=== PATIENT | male | born 1970 | race Caucasian/White ===

== ENCOUNTER → 2023-01-17 | Outpatient (CLI) | payer BC ==
[2023-01-17 22:41] LABS: Basophils # (A) 0.07 X 10*3/uL (0.00-0.10); Basophils % (A) 0.9 %; Eosinophils % (A) 6.7 %; HCT 48.6 % (39.6-50.0); HGB 15.6 g/dL (13.0-17.0); Immature Grans, Automated 0.3 %; Lymphocytes # (A) 2.79 X 10*3/uL (0.90-5.00); Lymphocytes % (A) 37.4 %; MCH 29.2 pg (27.0-32.0); MCHC 32.1 g/dL (32.0-37.0); Mean Platelet Volume 10.9 fL (9.5-12.2); Monocytes # (A) 0.61 X 10*3/uL (0.20-1.00); Monocytes % (A) 8.2 %; NRBC Per 100 WBC 0 /100 WBCS (0.0-0.0); Neutrophils # (A) 3.47 X 10*3/uL (1.80-7.70); Neutrophils % (A) 46.5 %; Platelet Count 255 X 10*3/uL (140-440); RBC 5.34 X 10*6/uL (4.40-5.60); RDW 13.2 % (11.5-14.5); WBC 7.46 X 10*3/uL (4.50-10.00)
[2023-01-17 23:19] LABS: ALT 52 U/L (10-49); AST 29 U/L (14-35); African American GFR (CKD) 111.9 (60.0-200.0); Albumin 4.4 g/dL (3.8-4.9); Albumin/Globulin Ratio 1.73 (1.60-3.17); Alkaline Phosphatase 134 U/L (41-126); BUN/Creat Ratio 17.48 Ratio (12.00-20.00); Blood Urea Nitrogen 15.7 mg/dL (9.0-27.0); Calcium 9.7 mg/dL (8.7-10.3); Carbon Dioxide 25.2 mmol/L (20.0-27.5); Chloride 105 mmol/L (96-109); Globulin 2.5 g/dL (1.6-3.3); Glucose 100 mg/dL (70-110); LDL Cholesterol,Calculated 92.9 mg/dL (0.0-131.0); Non-African American GFR(CKD) 96.6 (60.0-200.0); Potassium 4.3 mmol/L (3.5-5.5); Sodium 143 mmol/L (135-145); Total Protein 6.9 g/dL (6.2-8.2)
== END | disposition home or self-care (01) ==
LOC: LABWHC1 10:54
PROVIDERS: ATTEND Family Medicine
DX: Z00.00 Encounter for general adult medical examination without abnormal findings (principal); Z12.5 Encounter for screening for malignant neoplasm of prostate
CPT/HCPCS: 36415; 80053; 80061; 82306; 84153; 84439; 84443; 84481; 85025

== ENCOUNTER → 2025-01-13 | Outpatient (CLI) | payer BC ==
[2025-01-13 16:31] LABS: HCT 50.1 % (39.6-50.0); HGB 16.1 g/dL (13.0-17.0); MCH 29.3 pg (27.0-32.0); MCHC 32.1 g/dL (32.0-37.0); MCV 91.1 FL (80.0-97.0); Mean Platelet Volume 11.6 FL (9.5-12.2); NRBC Per 100 WBC 0 X 10*3/uL (0.00-0.01); Platelet Count 271 X 10*3/uL (140-440); RDW 12.9 % (11.5-14.5); WBC 8.23 X 10*3/uL (4.50-10.00)
[2025-01-13 16:52] LABS: Blood Urea Nitrogen 12.4 mg/dL (9.0-27.0); Carbon Dioxide 23.9 mmol/L (21.6-31.8); Chloride 107 mmol/L (96-109); Potassium 4.8 mmol/L (3.5-5.5); Sodium 143 mmol/L (135-145)
== END | disposition home or self-care (01) ==
LOC: LABPAT 08:44
PROVIDERS: ATTEND Internal Medicine
DX: Z01.812 Encounter for preprocedural laboratory examination (principal); R94.31 Abnormal electrocardiogram [ECG] [EKG]; R06.02 Shortness of breath
CPT/HCPCS: 80051; 82565; 84520; 85027

== ENCOUNTER 2025-01-16 09:03 | Day surgery (SDC) | payer BC ==
[2025-01-13 11:42] VITALS: BMI 40.8
[~2025-01-16 09:03] MED LIST: ALPRAZolam 0.25 MG TAB PO PRN; ALPRAZolam 0.5 MG TAB PO PRN; HEPARIN SODIUM,PORCINE (1 ML) 2,500 UNIT in SODIUM CHLORIDE 0.9% 250 ML IRRIGATION PRN; HEPARIN SODIUM,PORCINE 10,000 UNIT in SODIUM CHLORIDE 0.9% 1,000 ML IRRIGATION PRN; NITROGLYCERIN SL TABS 0.4 MG TAB SUBLINGUAL PRN
[2025-01-16 09:32] VITALS: RESP 16; TEMP 98.3
[2025-01-16] MEDS: SODIUM CHLORIDE 0.9% 1,000 ML in EMPTY BAG 1 BAG IV SCH (09:33)
[2025-01-16] MEDS: ATORVASTATIN 80 MG TAB PO STA (09:33)
[2025-01-16] MEDS: ASPIRIN 325 MG TAB PO STA (09:33)
[2025-01-16] MEDS: IV FLUID CONTINUATION 1,000 ML IV ONE (09:35)
[2025-01-16] MEDS: HEPARIN SODIUM,PORCINE 10,000 UNIT in SODIUM CHLORIDE 0.9% 1,000 ML IRRIGATION ONE (09:49)
[2025-01-16] MEDS: HEPARIN SODIUM,PORCINE (1 ML) 2,500 UNIT in SODIUM CHLORIDE 0.9% 250 ML IRRIGATION ONE (09:49)
[2025-01-16] MEDS: fentaNYL (PF) 50 MCG/1 ML VIAL IVP ONE (09:56)
[2025-01-16] MEDS: MIDAZOLAM 2 MG/2 ML VIAL IVP ONE ×2 (09:56→10:04)
[2025-01-16] MEDS: LIDOCAINE 1% INJ 10MG/ML (20 ML MDV) SQ ONE (09:59)
[2025-01-16] MEDS: VERAPAMIL SYRINGE (5 MG/10 ML) INTRAARTER ONE (10:01)
[2025-01-16] MEDS: fentaNYL (PF) 50 MCG/ML 2 ML AMP IVP ONE (10:04)
[2025-01-16] MEDS: HEPARIN SODIUM 1,000 UN/ML (10ML VL) IVP ONE (10:04)
[2025-01-16] MEDS: IOPAMIDOL-370 100ML BTL INJ ONE (10:07)
--- NOTE | 2025-01-16 10:10 | P.CARDCATH ---
Description of Procedure: PROCEDURES PERFORMED: Left heart catheterization, bilateral coronary angiography, ultrasound guided arterial access INDICATION: Abnormal stress test CONSENT:I have discussed the risks, benefits and alternative therapies for the above-mentioned procedure and for both sedation/analgesia as well as necessary blood product administration, if indicated, as they pertain to this patient. The patient has indicated understanding and acceptance of the risks and procedures discussed. PROCEDURE: After the risks, benefits and alternatives of the above mentioned procedure explained in detail with the patient, informed consent was obtained. Patient was taken to the catheterization lab and prepped and draped in usual fashion. Ultrasound guidance was used to assess for arterial access. 1% lidocaine was used to anesthetize the right radial artery. A 6-Malaysian sheath was placed in the right radial artery using modified Seldinger technique and ultrasound guidance. Left coronary angiography was performed with a 5-Malaysian JL 3.5 catheter and right coronary angiography was performed with a 5-Malaysian FR5 catheter in various views. A 5-Malaysian FR5 catheter was inserted into the left ventricle and pressure measurements were obtained. The right radial sheath was removed and a TR band was placed with hemostasis achieved. The patient to lerated the procedure well. Patient was transported back to the post catheterization holding area in stable condition. Conscious Sedation: Patient was monitored under the direct supervision of myself for conscious sedation using Versed and fentanyl for a total duration of 9 minutes HEMODYNAMICS: Aorta: 130/72 LV: 131/10, LVEDP 20 SELECTIVE CORONARY ARTERIOGRAPHY: LEFT MAIN: The left main is a large caliber vessel which bifurcates into the LAD and circumflex. There is no significant stenosis. LEFT ANTERIOR DESCENDING CORONARY ARTERY: LAD is a large caliber vessel which wraps around to the apex. There is no significant stenosis. LEFT CIRCUMFLEX CORONARY ARTERY: Left circumflex is a moderate caliber vessel without significant stenosis. RIGHT CORONARY ARTERY: The right coronary artery is a large caliber vessel which gives off a PDA and PLV branch and is the dominant vessel. There is no significant stenosis. FINAL IMPRESSION: 1. Normal coronary arteries as described above. 2. Mildly elevated left sided filling pressures PLAN: 1. Aggressive risk factor modification per most recent ACC/AHA guidelines. 2. Follow-up in the office in 1-2 weeks.
[2025-01-16 17:35] VITALS: PULSE 56
[2025-01-16 17:51] VITALS: BP 141/71
== END 2025-01-16 14:37 | disposition home or self-care (01) ==
LOC: CATHCVL 09:03
PROVIDERS: ATTEND Internal Medicine
DX: R94.31 Abnormal electrocardiogram [ECG] [EKG] (principal); I10 Essential (primary) hypertension; E78.5 Hyperlipidemia, unspecified; Z82.49 Family history of ischemic heart disease and other diseases of the circulatory system; Z79.82 Long term (current) use of aspirin; Z79.02 Long term (current) use of antithrombotics/antiplatelets; Z79.899 Other long term (current) drug therapy
CPT/HCPCS: 93458; J2250; J1644 ×3; J2003; J3010 ×2; Q9967